=== PATIENT | male | born 1960 | race African-American/Black ===

== ENCOUNTER 2023-03-05 12:12 | Emergency (ER) | payer MEDICAID, OTHER ==
[~2023-03-05] VITALS: Ht 185.4 cm; Wt 100.3 kg
[~2023-03-05 12:12] MED LIST: CYCL5TAB89 PO; IBUP-1456 PO; LISI20TA56; OMEGCAP9; SIMV-270; SIMV20TA20; TRIA37.577; TRIA50CA40; TRIO1TP
[2023-03-05 13:06] LABS: Basophils # (auto) 0.1 10 ^3/uL (0-0.2); Basophils % (auto) 1.2 % (0.0-2.0); Eosinophils # (auto) 0.2 10 ^3/uL (0-0.8); Eosinophils % (auto) 2.3 % (0.0-7.0); Hematocrit 40.7 % (41.0-53.0); Hemoglobin 13.8 g/dL (13.5-17.5); Lymphocytes # (auto) 3.8 10 ^3/uL (0.4-5.4); Lymphocytes % (auto) 42.7 % (10.0-50.0); Mean Corpuscular Hemoglobin 31.7 pg (28.0-32.0); Mean Corpuscular Hgb Conc. 33.9 g/dL (32.0-36.0); Mean Corpuscular Volume 93.4 fL (80.0-100.0); Monocytes # (auto) 0.6 10 ^3/uL (0-1.3); Monocytes % (auto) 6.5 % (0.0-12.0); Neutrophils # (auto) 4.3 10 ^3/uL (1.6-8.6); Neutrophils % (auto) 47.3 % (37.0-80.0); Nucleated Red Blood Cells % 0.1 %; Red Blood Cells 4.35 10^6/uL (4.5-5.90)
[2023-03-05 13:28] LABS: Alanine Aminotransferase 46 U/L (7-40); Albumin 4.9 g/dL (3.2-4.8); Alkaline Phosphatase 88 U/L (46-116); Anion Gap 8 (5-15); Aspartate Aminotransferase 25 U/L (13-40); BUN/Creatinine Ratio 16.7 (10.0-20.0); Bilirubin, Total 0.9 mg/dL (0.2-1.0); Blood Urea Nitrogen 22 mg/dL (9-23); Calcium 10.4 mg/dL (8.7-10.4); Carbon Dioxide 29 mmol/L (20-30); Chloride 104 mmol/L (98-107); Glucose 111 mg/dL (74-106); Potassium 3.1 mmol/L (3.5-5.1); Sodium 141 mmol/L (136-145); Total Protein 7.9 g/dL (5.7-8.2)
[2023-03-05] MEDS ORDERED: POTASSIUM CHL 20MEQ/100ML 100 ML IV SCH (17:15)
[2023-03-05] MEDS ORDERED: PRED20TA2 PO (17:20)
[2023-03-05] MEDS ORDERED: VALA1TAB PO (17:20)
[2023-03-05] MEDS ORDERED: ARTIOIN OP (17:20)
[2023-03-05] MEDS: ACYCLOVIR 400 MG TAB PO ONE (17:24)
[2023-03-05] MEDS: predniSONE 20 MG TAB PO ONE (17:24)
[2023-03-05] MEDS: POTASSIUM CHL 20 Meq TABLET PO ONE (17:32)
[2023-03-05 17:38] VITALS: BP 182/105; PULSE 86; RESP 20; TEMP 98.3; O2SAT 97
== END 2023-03-05 17:37 | disposition home or self-care (01) ==
LOC: ER 12:12
DX: G51.0 Bell's palsy (principal); I10 Essential (primary) hypertension; Z79.899 Other long term (current) drug therapy
CPT/HCPCS: 36415; 70450; 80053; 84484; 85025; 93005; 99284; J7512